=== PATIENT | female | born 1985 | race African-American/Black ===

== ENCOUNTER 2016-12-13 13:23 | Emergency (ER) | payer MEDICAID, OTHER ==
[2016-12-13 15:01] LABS: Bilirubin Negative (Negative); Blood, Urine Trace (Negative); Glucose, Urine (Dipstick) Negative (Negative); Leukocyte Trace (Negative); Nitrite Negative (Negative); Protein, Urine (Dipstick) 100 mg/dL (Neg-Trace); Urobilinogen 0.2 mg/dL (0.2-1.0); pH, Urine 6.5 (5.0-9.0)
[2016-12-13 15:04] LABS: Clarity Hazy (Clear)
[2016-12-13 15:19] LABS: Bacteria/HPF 1+ HPF (None Seen); RBC/HPF 0-3 HPF (0-3); Squamous Epithelial 0-3 HPF (0-3); WBC/HPF 0-3 HPF (0-3)
== END 2016-12-13 16:30 | disposition home or self-care (01) ==
LOC: NAV ERS 13:23
DX: O9A.213 Injury, poisoning and certain other consequences of external causes complicating pregnancy, third trimester (principal); S91.201A Unspecified open wound of right great toe with damage to nail, initial encounter; T14.8 Other injury of unspecified body region; Z79.899 Other long term (current) drug therapy; Z3A.31 31 weeks gestation of pregnancy; Y04.0XXA Assault by unarmed brawl or fight, initial encounter
CPT/HCPCS: 81003; 81015; 99284

== ENCOUNTER 2017-08-03 03:13 | Emergency (ER) | payer OTHER ==
[2017-08-03] MEDS ORDERED: cefTRIAXone\\ROCEPHIN 1 GM VIAL ONE (03:33)
[2017-08-03] MEDS ORDERED: Lidocaine 1% 20 ML MDV ONE (03:33)
== END 2017-08-03 03:54 | disposition home or self-care (01) ==
LOC: NAV ERS 03:13
DX: J20.9 Acute bronchitis, unspecified (principal)
CPT/HCPCS: 96372; J0696; J2001

== ENCOUNTER 2017-08-05 16:25 | Emergency (ER) | payer OTHER ==
[2017-08-05] MEDS ORDERED: Ondansetron ODT 4 MG TAB ONE (16:58)
== END 2017-08-05 17:52 | disposition home or self-care (01) ==
LOC: NAV ERS 16:25
DX: R11.2 Nausea with vomiting, unspecified (principal)
CPT/HCPCS: 99283; Q0162

== ENCOUNTER 2017-09-26 01:06 | Emergency (ER) | payer OTHER ==
[2017-09-26] MEDS ORDERED: Ibuprofen 800 MG TAB ONE (01:24)
[2017-09-26] MEDS ORDERED: cefTRIAXone\\ROCEPHIN 1 GM VIAL ONE (01:51)
[2017-09-26] MEDS ORDERED: traMADol HCl 50 MG TAB ONE (01:51)
== END 2017-09-26 02:16 | disposition home or self-care (01) ==
LOC: NAV ERS 01:06
DX: J03.00 Acute streptococcal tonsillitis, unspecified (principal)
CPT/HCPCS: 87430; 96372; J0696

== ENCOUNTER 2017-11-07 16:17 | Emergency (ER) | payer OTHER ==
[2017-11-07] MEDS ORDERED: Ondansetron ODT 4 MG TAB ONE (16:51)
[2017-11-07] MEDS ORDERED: Sodium Chloride 0.9% 1,000 ML ONE (17:29)
[2017-11-07] MEDS ORDERED: Ondansetron HCl/PF 4 MG/2 ML Vial ONE (17:29)
[2017-11-07 18:15] LABS: #Basophils 0.1 thou/uL (0.0-0.2); #Eosinphils 0.1 thou/uL (0.0-0.7); #Lymphocytes 1.4 thou/uL (1.20-3.40); #Monocytes 0.6 thou/uL (0.11-0.59); #Neutrophils 10.8 thou/uL (1.40-6.50); %Basophils 0.5 % (0.0-1.0); %Eosinophils 0.9 % (0.0-10.0); %Lymphocytes 11.1 % (21.0-51.0); %Monocytes 4.6 % (0.0-10.0); Hemoglobin 12.8 g/dL (12.0-16.0); Mean Corpuscular HGB CONC 30.2 g/dL (32.0-36.0); Mean Corpuscular Hemoglobin 26.5 pg (27.0-31.0); Mean Corpuscular Volume 87.6 fl (81.0-99.0); Mean Platelet Volume 14.1 fL (7.4-10.4); Platelet Count 211 thou/uL (130-400); RBC Distribution Width 16.3 % (11.5-14.5); Red Blood Cell (RBC) Count 4.83 mill/uL (4.20-5.40)
[2017-11-07 18:25] LABS: ALT (SGPT) 11 U/L (8-55); AST (SGOT) 15 U/L (5-34); Albumin 3.9 g/dL (3.5-5.0); Alkaline Phosphatase 59 U/L (40-150); Anion Gap 16 mmol/L (10-20); BUN (Urea Nitrogen) 15 mg/dL (7.0-18.7); Bilirubin, Total 0.3 mg/dL (0.2-1.2); Calc. Creatinine Clearance 0 mL/min (70-130); Calcium 8.8 mg/dL (7.8-10.44); Carbon Dioxide 19 mmol/L (22-29); Chloride 109 mmol/L (98-107); Estimated GFR-MDRD Greater than 90; Globulin 3.9 g/dL (2.4-3.5); Glucose 112 mg/dL (70-105); Lipase 39 U/L (8-78); Potassium 3.4 mmol/L (3.5-5.1); Protein, Total 7.8 g/dL (6.0-8.3); Sodium 141 mmol/L (136-145)
[2017-11-07 19:29] LABS: PLT Morphology Comment Appears Adequate; RBC Morphology Normal
== END 2017-11-07 19:03 | disposition home or self-care (01) ==
LOC: NAV ERS 16:17
DX: K52.9 Noninfective gastroenteritis and colitis, unspecified (principal); Z86.718 Personal history of other venous thrombosis and embolism
CPT/HCPCS: 80053; 83690; 85025; 96361; 96374; J2405; J7050; Q0162

== ENCOUNTER 2019-09-08 06:36 | Emergency (ER) | payer MEDICAID, SELFPAY | END 2019-09-08 07:18 | disposition home or self-care (01) | LOC: NAV ERS 06:36 | DX: J20.9 Acute bronchitis, unspecified (principal); Z86.718 Personal history of other venous thrombosis and embolism; F17.210 Nicotine dependence, cigarettes, uncomplicated | CPT/HCPCS: 93005; 94640; J7620 ==

== ENCOUNTER 2020-11-22 07:36 | Emergency (ER) | payer OTHER | END 2020-11-22 08:14 | disposition home or self-care (01) | LOC: NAV ERS 07:36 | DX: L02.411 Cutaneous abscess of right axilla (principal); Z86.718 Personal history of other venous thrombosis and embolism | CPT/HCPCS: 99283 ==

== ENCOUNTER 2020-11-25 12:59 | Emergency (ER) | payer OTHER ==
[2020-11-25] MEDS ORDERED: Lidocaine 1% w/Epinephrine 1:100K 30 ML VIAL ONE (14:01)
[2020-11-25] MEDS ORDERED: Bacitracin 1 PK ONE (14:30)
== END 2020-11-25 14:43 | disposition home or self-care (01) ==
LOC: NAV ERS 12:59
DX: L02.411 Cutaneous abscess of right axilla (principal)
CPT/HCPCS: 10061; 87070; 87205

== ENCOUNTER 2020-12-15 09:47 | Emergency (ER) | payer OTHER ==
[2020-12-15] MEDS ORDERED: Ondansetron PF 4 MG/2 ML Vial ONE (11:12)
[2020-12-15] MEDS ORDERED: Sodium Chloride 0.9% 1,000 ML ONE ×2 (11:12→12:05)
[2020-12-15 11:17] LABS: #Basophils 0.1 thou/uL (0.0-0.2); #Lymphocytes 1.5 thou/uL (1.20-3.40); #Monocytes 0.6 thou/uL (0.11-0.59); #Neutrophils 2.4 thou/uL (1.40-6.50); %Basophils 1.9 % (0.0-1.0); %Eosinophils 0.1 % (0.0-10.0); %Lymphocytes 32.6 % (21.0-51.0); %Monocytes 12.5 % (0.0-10.0); %Neutrophils 52.8 % (42.0-75.0); Hemoglobin 13.8 g/dL (12.0-16.0); Mean Corpuscular HGB CONC 31.1 g/dL (32.0-36.0); Mean Corpuscular Hemoglobin 27.8 pg (27.0-31.0); Mean Corpuscular Volume 89.5 fL (78.0-98.0); Mean Platelet Volume 9.9 fL (7.4-10.4); Platelet Count 191 thou/uL (130-400); RBC Distribution Width 14.1 % (11.5-14.5); Red Blood Cell (RBC) Count 4.95 mill/uL (4.20-5.40); White Blood Cell (WBC) Count 4.5 thou/uL (4.8-10.8)
[2020-12-15 11:22] LABS: Bilirubin Small (Negative); Blood, Urine Moderate (Negative); Clarity Clear (Clear); Glucose, Urine (Dipstick) Negative (Negative); Ketone, Urine 40 mg/dL (Negative); Leukocyte Negative (Negative); Nitrite Negative (Negative); Protein, Urine (Dipstick) Negative (Neg-Trace); Urobilinogen 0.2 mg/dL (Less than 2); pH, Urine 5.5 (5.0-9.0)
[2020-12-15 11:29] LABS: Specific Gravity, Urine 1.025 (1.002-1.036)
[2020-12-15 11:33] LABS: ALT (SGPT) 27 U/L (8-55); AST (SGOT) 27 U/L (5-34); Alkaline Phosphatase 72 U/L (40-110); Anion Gap 14 mmol/L (10-20); BUN (Urea Nitrogen) 11 mg/dL (7.0-18.7); Bilirubin, Total 0.2 mg/dL (0.2-1.2); Calc. Creatinine Clearance 0 mL/min (70-130); Carbon Dioxide 23 mmol/L (22-29); Chloride 103 mmol/L (98-107); Globulin 3.9 g/dL (2.4-3.5); Glucose 86 mg/dL (70-105); Lipase 26 U/L (8-78); Potassium 3.8 mmol/L (3.5-5.1); Protein, Total 7.9 g/dL (6.0-8.3); Sodium 136 mmol/L (136-145)
[2020-12-15 11:42] LABS: Pregnancy Test - Urine (BHCG) Negative (Negative)
[2020-12-15 11:43] LABS: Pregu Control Background? CLEAR/WHITE (CLR/WHITE); Pregu Control Bar Appear? YES (CONTROL BAR); Specific Gravity 1.025 (1.002-1.036)
[2020-12-15 11:51] LABS: Bacteria/HPF Rare-Few HPF (None Seen); Squamous Epithelial 0-3 HPF (0-3); WBC/HPF None Seen HPF (0-3)
[2020-12-16 05:06] LABS: SARS-CoV-2 PCR by NAA DETECTED (NotDetected)
== END 2020-12-15 13:17 | disposition home or self-care (01) ==
LOC: NAV ERS 09:47
DX: E86.0 Dehydration (principal); R19.7 Diarrhea, unspecified; R11.2 Nausea with vomiting, unspecified; Z86.718 Personal history of other venous thrombosis and embolism; Z79.82 Long term (current) use of aspirin
CPT/HCPCS: 80053; 81003; 81015; 81025; 83690; 85025; 87635; 96372; 96374; J0500; J2405; J7050; U0003; U0005

== ENCOUNTER 2022-01-11 12:56 | Emergency (ER) | payer OTHER | END 2022-01-11 13:45 | disposition home or self-care (01) | LOC: NAV ERS 12:56 | DX: L25.9 Unspecified contact dermatitis, unspecified cause (principal); Z86.718 Personal history of other venous thrombosis and embolism | CPT/HCPCS: 99282 ==

== ENCOUNTER 2022-03-16 22:54 | Emergency (ER) | payer OTHER ==
[2022-03-16] MEDS ORDERED: Metoclopramide HCl 10 MG/2 ML VIAL ONE (23:32)
[2022-03-16] MEDS ORDERED: Sodium Chloride 0.9% 1,000 ML ONE (23:32)
[2022-03-16] MEDS ORDERED: diphenhydrAMINE 50 MG/ML VIAL ONE (23:32)
[2022-03-16] MEDS ORDERED: Penicillin V Potassium 250 MG TAB ONE (23:55)
== END 2022-03-17 00:28 | disposition home or self-care (01) ==
LOC: NAV ERS 22:54
DX: J02.0 Streptococcal pharyngitis (principal); R51.9 Headache, unspecified
CPT/HCPCS: 87430; 96365; 96375; J1200; J2765; J7050

== ENCOUNTER 2022-10-03 02:41 | Emergency (ER) | payer OTHER ==
[2022-10-03] MEDS ORDERED: Lidocaine Viscous Sol 2% 15 ml UD Cup ONE (03:08)
[2022-10-03] MEDS ORDERED: Ondansetron ODT 4 MG TAB ONE (03:15)
== END 2022-10-03 03:35 | disposition home or self-care (01) ==
LOC: NAV ERS 02:41
DX: J02.8 Acute pharyngitis due to other specified organisms (principal)
CPT/HCPCS: 87081; 87430; 99283; Q0162

== ENCOUNTER 2023-12-08 12:43 | Emergency (ER) | payer OTHER ==
[2023-12-08] MEDS ORDERED: Ondansetron PF 4 MG/2 ML Vial ONE (13:48)
[2023-12-08] MEDS ORDERED: Sodium Chloride 0.9% 1,000 ML ONE (13:48)
[2023-12-08] MEDS ORDERED: Albuterol 2.5 MG (0.5 mL) NEB ONE ×2 (13:48→16:35)
[2023-12-08 13:54] LABS: #Basophils 0.1 thou/uL (0.0-0.2); #Lymphocytes 1.8 thou/uL (1.20-3.40); #Monocytes 0.4 thou/uL (0.11-0.59); #Neutrophils 3.7 thou/uL (1.40-6.50); %Basophils 1.6 % (0.0-1.0); %Eosinophils 0.5 % (0.0-10.0); %Lymphocytes 29.5 % (21.0-51.0); %Monocytes 5.9 % (0.0-10.0); %Neutrophils 62.4 % (42.0-75.0); Hematocrit 41.5 % (36.0-47.0); Hemoglobin 13.1 g/dL (12.0-16.0); Mean Corpuscular HGB CONC 31.6 g/dL (32.0-36.0); Mean Corpuscular Hemoglobin 28.3 pg (27.0-31.0); Mean Corpuscular Volume 89.4 fl (78.0-98.0); Mean Platelet Volume 10.4 fL (7.4-10.4); Platelet Count 278 10x3/uL (130-400); RBC Distribution Width 14.2 % (11.5-14.5); Red Blood Cell (RBC) Count 4.64 mill/uL (4.20-5.40)
[2023-12-08 14:04] LABS: BHCG - Serum Negative (NEGATIVE); Pregs Control Bar Appear? YES (CONTROL BAR)
[2023-12-08 14:15] LABS: ALT (SGPT) 16 U/L (8-55); AST (SGOT) 21 U/L (5-34); Albumin 4.1 g/dL (3.5-5.0); Alkaline Phosphatase 65 U/L (40-110); Anion Gap 14 mmol/L (10-20); BUN (Urea Nitrogen) 8 mg/dL (7.0-18.7); Bilirubin, Total 0.3 mg/dL (0.2-1.2); Calc. Creatinine Clearance 0 mL/min (70-130); Calcium 9.2 mg/dL (7.8-10.44); Carbon Dioxide 20 mmol/L (22-29); Chloride 109 mmol/L (98-107); Estimated GFR 80; Glucose 109 mg/dL (70-105); Magnesium 1.8 mg/dL (1.6-2.6); Potassium 3.2 mmol/L (3.5-5.1); Protein, Total 8.1 g/dL (6.0-8.3); Sodium 140 mmol/L (136-145)
[2023-12-08] MEDS ORDERED: Potassium Chloride 20 MEQ TAB ONE (14:33)
[2023-12-08] MEDS ORDERED: Acetaminophen 325 MG TAB ONE (15:49)
[2023-12-08] MEDS ORDERED: methylPREDNISolone Sod Succ/PF 125 MG/2 ML VIAL ONE (16:35)
== END 2023-12-08 17:06 | disposition home or self-care (01) ==
LOC: NAV ERS 12:43
DX: T54.91XA Toxic effect of unspecified corrosive substance, accidental (unintentional), initial encounter (principal); J98.01 Acute bronchospasm; E87.6 Hypokalemia; R11.2 Nausea with vomiting, unspecified
CPT/HCPCS: 71045; 80053; 83735; 84703; 85025; 93005; 96361; 96374; 96375; J2405; J2930; J7050; J7611